=== PATIENT | female | born 1990 | race Caucasian/White ===

== ENCOUNTER 2017-02-11 23:26 | Emergency (ER) | payer OTHER ==
[~2017-02-11] VITALS: Ht 162.6 cm; Wt 84.8 kg
[~2017-02-11 23:26] MED LIST: ANUS2.5C2 TOP; COLA100C PO; IBUP-1114 PO; MOM30SS PO; OXYC1TAB23 PO; PRENTAB55 PO
[2017-02-12] MEDS ORDERED: NS 1,000 ML IV ONE
[2017-02-12] MEDS ORDERED: ONDANSETRON 4MG/2ML VIAL (J2405) IV ONE
[2017-02-12 00:19] LABS: BASO % 0.1 % (0.0-1.0); EOS # 0.1 K/mm3 (0.0-0.50); EOS % 0.5 % (0.0-3.0); LARGE UNSTAINED CELL % 0.3 % (0.0-4.0); LYMPH # 1.2 K/mm3 (1.5-6.5); LYMPH % 9.7 % (24.0-44.0); MEAN CORPUSCULAR HEMOGLOBIN 31.2 pg (27.0-33.0); MEAN CORPUSCULAR HGB CONC 34.2 g/dl (32.0-36.5); MEAN CORPUSCULAR VOLUME 91.2 fl (80.0-96.0); MONO # 0.4 K/mm3 (0.0-0.8); MONO % 3.5 % (0.0-5.0); NEUTROPHILS # 10.6 K/mm3 (1.8-7.7); PLATELET COUNT, AUTOMATED 302 k/mm3 (150-450); RED CELL DISTRIBUTION WIDTH 12.5 % (11.5-14.5); WHITE BLOOD COUNT 12.3 K/mm3 (4.0-10.0)
[2017-02-12 00:39] LABS: CONTROL LINE HCG INT CTR LINE PRESENT
[2017-02-12 00:47] LABS: ALBUMIN 4.5 GM/DL (3.2-5.2); ALBUMIN/GLOBULIN RATIO 0.98 (1.00-1.93); ALKALINE PHOSPHATASE 69 U/L (45-117); ALT/SGPT 41 U/L (12-78); ANION GAP 12 MEQ/L (8-16); AST/SGOT 21 U/L (15-37); BILIRUBIN,DIRECT < 0.1 MG/DL (0.0-0.2); BILIRUBIN,TOTAL 0.3 MG/DL (0.2-1.0); BLOOD UREA NITROGEN 13 MG/DL (7-18); CALCIUM LEVEL 9.6 MG/DL (8.5-10.1); CARBON DIOXIDE LEVEL 21 MEQ/L (21-32); CHLORIDE LEVEL 107 MEQ/L (98-107); CREATININE FOR GFR 1.13 MG/DL (0.55-1.02); GLOMERULAR FILTRATION RATE > 60.0 (>60); GLUCOSE, FASTING 116 MG/DL (70-105); POTASSIUM SERUM 4.3 MEQ/L (3.5-5.1); SODIUM LEVEL 140 MEQ/L (136-145); TOTAL PROTEIN 9.1 GM/DL (6.4-8.2)
[2017-02-12] MEDS ORDERED: ZOFR4TAB3 PO (01:22)
[2017-02-12 02:11] VITALS: BP 116/68
[2017-02-12] MEDS ORDERED: ONDANSETRON 4 MG ORAL DISINTEGRATING TAB (S0181) PO ONE (02:15)
== END 2017-02-12 02:20 | disposition home or self-care (01) ==
LOC: EDBD 23:26 → EDSEX 23:26 → M ED 02-12 00:38
DX: A08.4 Viral intestinal infection, unspecified (principal); Z88.8 Allergy status to other drugs, medicaments and biological substances
CPT/HCPCS: 80048; 80076; 81001; 83690; 84703; 85025; 93041; 96374; 99285; J2405

== ENCOUNTER 2018-02-06 11:10 | Day surgery (SDC) | payer OTHER ==
[2018-02-06 11:46] LABS: HEMATOCRIT 37.5 % (36.0-47.0); HEMOGLOBIN 12.9 g/dl (12.0-16.0); MEAN CORPUSCULAR HEMOGLOBIN 31.5 pg (27.0-33.0); MEAN CORPUSCULAR HGB CONC 34.4 g/dl (32.0-36.5); MEAN CORPUSCULAR VOLUME 91.5 fl (80.0-96.0); PLATELET COUNT, AUTOMATED 283 10^3/uL (150-450); RED CELL DISTRIBUTION WIDTH 13.4 % (11.5-14.5); WHITE BLOOD COUNT 11.3 10^3/uL (4.0-10.0)
[2018-02-06] MEDS ORDERED: LIDOCAINE 2% INJ 100 MG/5 ML SDV (FOR ANES.) As Ordered (13:14)
[2018-02-06] MEDS ORDERED: PROPOFOL 200 MG/20 ML VIAL As Ordered (13:14)
[2018-02-06] MEDS ORDERED: fentaNYL 100 MCG/2 ML INJECTION (J3010) As Ordered (13:15)
[2018-02-06] MEDS ORDERED: MIDAZOLAM INJ 2 MG/2 ML VIAL (J2250) As Ordered (13:15)
[2018-02-06] MEDS ORDERED: METOCLOPRAMIDE INJ 10MG/2ML VIAL (J2765) As Ordered (14:05)
[2018-02-06] MEDS ORDERED: dexameTHASONE 4 MG/ML 1ML VIAL (J1100) As Ordered ×2 (14:05)
[2018-02-06] MEDS ORDERED: KETOROLAC 60 MG/2 ML VIAL (J1885) As Ordered (14:05)
[2018-02-06] MEDS ORDERED: ONDANSETRON 4MG/2ML VIAL (J2405) As Ordered (14:05)
[2018-02-06] MEDS: SILVER NITRATE APPLICATOR As Ordered (14:20)
[2018-02-06] MEDS: miSOPROStol 200 MCG TAB (S0191) As Ordered (14:31)
[2018-02-06] MEDS ORDERED: PERCOCET 5MG/325MG TAB As Ordered (14:54)
[2018-02-06] MEDS: PERCOCET 5MG/325MG TAB PO ×2 (15:03→21:04)
[2018-02-06] MEDS ORDERED: HYDROmorphone HCL 1 MG/ML SYRINGE (J1170) IV (15:15)
[2018-02-06] MEDS: LR 1,000 ML IV ×2 (15:15→16:22)
[2018-02-06] MEDS ORDERED: ONDANSETRON 4MG/2ML VIAL (J2405) IV (15:15)
[2018-02-06] MEDS ORDERED: fentaNYL 100 MCG/2 ML INJECTION (J3010) IV (15:15)
[2018-02-06] MEDS: DOCUSATE SODIUM 100 MG CAP PO (21:04)
[2018-02-06] MEDS: IBUPROFEN 800 MG TAB PO (21:04)
[2018-02-06 21:11] LABS: HEMATOCRIT 32.7 % (36.0-47.0); MEAN CORPUSCULAR HEMOGLOBIN 31.2 pg (27.0-33.0); MEAN CORPUSCULAR HGB CONC 33.6 g/dl (32.0-36.5); MEAN CORPUSCULAR VOLUME 92.6 fl (80.0-96.0); PLATELET COUNT, AUTOMATED 274 10^3/uL (150-450); RED BLOOD COUNT 3.53 10^6/uL (4.00-5.40); RED CELL DISTRIBUTION WIDTH 13.5 % (11.5-14.5); WHITE BLOOD COUNT 14.1 10^3/uL (4.0-10.0)
[2018-02-06] MEDS ORDERED: miSOPROStol 200 MCG TAB (S0191) As Ordered (21:11)
[2018-02-06] MEDS: miSOPROStol 200 MCG TAB (S0191) PR (21:15)
[2018-02-07] MEDS: LR 1,000 ML IV (00:22)
[2018-02-07] MEDS: PERCOCET 5MG/325MG TAB PO (01:49)
[2018-02-07 03:23] LABS: BASO % 0.2 % (0.0-1.0); EOS % 0.1 % (0.0-3.0); HEMATOCRIT 29.5 % (36.0-47.0); IMMATURE GRANULOCYTE % 0.9 % (0-3.0); LYMPH % 14.4 % (24.0-44.0); MEAN CORPUSCULAR HEMOGLOBIN 31.3 pg (27.0-33.0); MEAN CORPUSCULAR HGB CONC 33.9 g/dl (32.0-36.5); MEAN CORPUSCULAR VOLUME 92.5 fl (80.0-96.0); MONO # 0.7 10^3/uL (0.0-0.8); NEUTROPHILS # 11.1 10^3/uL (1.8-7.7); NEUTROPHILS % 79.4 % (36.0-66.0); PLATELET COUNT, AUTOMATED 258 10^3/uL (150-450); RED BLOOD COUNT 3.19 10^6/uL (4.00-5.40); RED CELL DISTRIBUTION WIDTH 13.4 % (11.5-14.5)
[2018-02-07] MEDS: IBUPROFEN 800 MG TAB PO (05:10)
[2018-02-07] MEDS: DOCUSATE SODIUM 100 MG CAP PO ×2 (08:50→09:02)
== END 2018-02-07 09:07 | disposition home or self-care (01) ==
LOC: M SDC 02-07 09:07 → M PED 17:15
DX: O02.1 Missed abortion (principal); N99.820 Postprocedural hemorrhage of a genitourinary system organ or structure following a genitourinary system procedure; G43.909 Migraine, unspecified, not intractable, without status migrainosus; K76.0 Fatty (change of) liver, not elsewhere classified; M54.5 Low back pain; Z88.8 Allergy status to other drugs, medicaments and biological substances
CPT/HCPCS: 59820

== ENCOUNTER → 2018-06-16 | Outpatient (REF) | payer OTHER ==
[2018-06-16 20:49] LABS: CHLAMYDIA DNA AMPLIFICATION NEGATIVE (NEGATIVE); GC DNA AMPLIFICATION NEGATIVE (NEGATIVE)
== END ==
LOC: M SFHCLERA 13:37
DX: N30.01 Acute cystitis with hematuria (principal)

== ENCOUNTER → 2018-06-16 | Outpatient (CLI) | payer OTHER | LOC: M LRY 13:37 | DX: R07.9 Chest pain, unspecified (principal) ==

== ENCOUNTER 2019-05-14 11:34 | Emergency (ER) | payer OTHER ==
[~2019-05-14] VITALS: Ht 162.6 cm; Wt 93.2 kg
[2019-05-14 11:34] VITALS: BP 139/68
[~2019-05-14 11:34] MED LIST changes: -COLA100C PO; +COLA100C5 PO; +IBUP-1022 PO; +ZOFR4TAB14 PO
[2019-05-14] MEDS ORDERED: PRED20TA PO (13:31)
== END 2019-05-14 13:47 | disposition home or self-care (01) ==
LOC: M ED 11:34
DX: S50.361A Insect bite (nonvenomous) of right elbow, initial encounter (principal); W57.XXXA Bitten or stung by nonvenomous insect and other nonvenomous arthropods, initial encounter; Y92.89 Other specified places as the place of occurrence of the external cause; Z88.8 Allergy status to other drugs, medicaments and biological substances
CPT/HCPCS: 99283; G0463; J2930